=== PATIENT | male | born 1990 | race Caucasian/White ===

== ENCOUNTER 2018-05-26 17:39 | Emergency (ER) | payer SELFPAY ==
[~2018-05-26] VITALS: Ht 170.2 cm; Wt 64.0 kg
[2018-05-26] MEDS ORDERED: IBUPROFEN 600MG TABLET PO STA (19:38)
[2018-05-26] MEDS ORDERED: ACETAMINOPHEN 325MG TABLET PO STA (19:38)
[2018-05-26] MEDS ORDERED: ASPIRIN 81MG TABLET PO ONE (19:45)
[2018-05-26 20:03] LABS: BASOPHILS % 0.1 % (0.0-2.0); HEMATOCRIT. 41.3 % (42.0-52.0); HEMOGLOBIN. 14.5 g/dL (14.0-18.0); LYMPHOCYTES % 8.5 % (20.0-50.0); MEAN CORPUSCULAR HEMOGLOBIN 29.7 pg (28.0-32.0); MEAN CORPUSCULAR VOLUME 84.6 fL (80.0-94.0); MEAN PLATELET VOLUME 8.5 fl (7.4-10.4); MONOCYTES % 10.2 % (2.0-8.0); NEUTROPHILS % 81.2 % (40.0-76.0); PLATELET 161 x1000/uL (130-400); RED BLOOD CELL COUNT 4.88 mill/uL (4.7-6.1); RED CELL DISTRIBUTION WIDTH 13.9 % (11.6-14.6)
[2018-05-26 20:04] LABS: CHLORIDE 101 mEq/L (98-107)
[2018-05-26 21:00] VITALS: BP 145/96
== END 2018-05-26 21:25 | disposition home or self-care (01) ==
LOC: ER 17:39
DX: F41.9 Anxiety disorder, unspecified (principal); R07.89 Other chest pain
CPT/HCPCS: 36415; 71045; 84484; 93005; 99284